=== PATIENT | female | born 2000 | race Caucasian/White ===

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

== ENCOUNTER 2019-01-24 11:47 | Emergency (ER) | payer BC, SELFPAY ==
[2019-01-24 11:54] VITALS: BP 121/64; PULSE 72; RESP 18; TEMP 36.7; O2SAT 99
--- NOTE | 2019-01-24 12:35 | W.ED.GENAD ---
Discharge Plan Disposition Patient Disposition: HOME Condition: Stable Discharge Details Chief Complaint: PsychEval Clinical Impression: Medication reaction, Depression, Anxiety, Passive suicidal ideations Primary Care Provider: Janell Rosales ED Provider: Kory Sahu Home Meds and New Rx's Prescriptions: Continued Nexplanon 68 mg implant 1 implant SBD ONCE Qty: 1 RF: 0 norethindrone (contraceptive) 0.35 mg tablet 0.35 mg PO DAILY Qty: 28 RF: 0 albuterol sulfate [Ventolin HFA] 60 PUFF HFA aerosol inhaler 200 puff Inhalation PRN PRNRF: 0 multivitamin 1 EACH capsule 1 ea PO DAILY RF: 0 Discharge Instructions Instructions: Depression (ED), Anxiety (ED) Additional Instructions: Please call [facility] human services or on-call psychiatric financial analyst as needed for any new or worsening signs or symptoms. Feel free to return to the emergency department for any further concerns otherwise follow-up with your primary care provider for reassessment preferably next week or as available for reassessment and recheck of your medication changes. Referrals: Janell Rosales [Primary Care Provider] - (As needed for reassessment) Discharge Data Discharge Date/Time-TO BE ENTERED AT DEPARTURE: 01/24/19 16:17 Medical Decision Making Patient presenting to the emergency department for chief complaint of worsening depression, nonspecific suicidal ideations, and some delusions. Patient states that one month ago she was started on Paxil by a new provider and then abruptly stopped by her normal provider due to worsening of symptoms. Over the past couple days she has noted worsening symptoms, delusions of feeling like she was in a coma but awake, and some nonspecific suicidal ideations without a specific plan. Patient denies any intentional activities to harm herself as she states that there is a voice in the back of her head causing her not to carry through with anything but has noticed an increase of these thoughts. Patient denies any medical complaints at this time. Physical exam is unremarkable for any specific physical findings that would suggest change in her psyche which I feel is more secondary to her medication change. Plan to check labs to rule out any endocrine or other source otherwise plan for mental health to evaluate patient as she does not appear intoxicated or altered in any manner fashion. Review of labs is unremarkable and patient is medically clear for further discussion of condition with mental health screener. After mental health financial analyst was able to see and evaluate patient she stated that patient would be safe to return home and follow-up with primary care or counseling services as needed. Patient is not at risk of imminent self-harm which also through my discussion and evaluation patient I do not disagree with this. Discussed discharge plan with patient who is in agreement with this plan. Patient was encouraged to return for new or worsening symptoms otherwise to follow-up with primary care provider for reassessment of her medication changes. After discussion of diagnosis and plan of care patient has no further needs, questions, or concerns and states clear understanding to return to the emergency department for any worsening symptoms. HPI General Mode of arrival: ambulatory. Date/Time Provider Initiated Documentation: 01/24/19 11:49. Limitations to Documentation: no limitations. Information obtained by: patient and RN notes reviewed. History of Present Illness 18 year old F presents to the emergency department with the chief complaint of Worsening site condition, depression, suicidal ideation, described as similar to prior episodes, Quality is described as other (Denies pain ), Patient started experiencing this month(s) (1) and it has been constant. Related Data Home Medications Medication Instructions Recorded Confirmed albuterol sulfate [Ventolin HFA] 200 puff INHALATION PRN PRN 02/12/13 01/24/19 multivitamin 1 ea PO DAILY 02/12/13 01/24/19 etonogestrel 68 mg subdermal 1 implant SBD ONCE #1 each 01/06/19 01/24/19 implant norethindrone (contraceptive) 0.35 0.35 mg PO DAILY #28 tab 01/06/19 01/24/19 mg tablet Previous Rx's Medication Instructions Recorded etonogestrel 68 mg subdermal 1 implant SBD ONCE #1 each 01/06/19 implant norethindrone (contraceptive) 0.35 0.35 mg PO DAILY #28 tab 01/06/19 mg tablet Allergies Allergy/AdvReac Type Severity Reaction Status Date / Time gluten AdvReac Unverified 01/24/19 11:53 General Stated Complaint: PsychEval TINO: 2 Review of Systems Constitutional Reports daytime sleepiness, Reports difficulty sleeping, Denies increased appetite and Reports poor appetite Comments: has been physically in good health, denies recent illness Cardiovascular Denies chest pain, Reports rapid heart rate (with panic attacks), Reports lightheadedness (with panic attacks) and Denies palpitations Musculoskeletal Reports back pain (x a couple months, no recent change) Neurologic Denies confusion and Reports memory loss (states this is usual with worsening depression) Psychiatric Reports abnormal sleep pattern, Reports anxiety, Reports change in appetite, Denies confusion, Reports depression, Reports memory loss (states this is usual with worsening depression), Reports panic attacks, Denies visual hallucinations, Denies hallucinations, Denies tactile hallucinations, Denies homicidal ideation and Reports suicidal ideation (no plan, feels impulsivity to hurt herself) Comments: history of self-harm (cutting), denies recent Also reports delusions. Reports 2-3 days of feeling like she was in a coma and she was trying to wake herself up; now she feels like she is asleep but is no longer trying to wake herself up Endocrine Denies palpitations [facility] Medical History Asthma (Chronic) Migraine (Chronic) Schizoaffective disorder (Acute) Family History Mother Hyperlipidemia Father No problems noted. Social History Smoking/Tobacco Use Status: Never Alcohol Intake: never Drug use: Occasionally Substance use type: other Details: CBD oil Do you feel safe at home: No (worried about self harm) Do you feel safe in your relationship?: Yes Female Reproductive History Menstrual control method: implanted History History 0 Para Hx # Term Pregnancies Multiple births Hx # Pregnancies Ectopic pregnancies AB induced Hx Number of Living Children AB spontaneous Exam Const General: cooperative, healthy appearing, comfortable, well developed and well groomed Nutritional Appearance: average body habitus Orientation: alert and oriented x3 Resp Effort & Inspection: normal respiratory effort and able to speak in complete sentences Auscultation: clear to auscultation bilaterally Cardio Rate: regular rate Rhythm: regular rhythm Heart Sounds: S1 normal, S2 normal, no click, no gallops, no murmurs and no rubs Neuro General: alert, oriented x3, gait normal and tone normal Speech: speech normal Gait: normal gait Motor: muscle tone normal throughout Psych Appearance: grossly normal Mental Status: mental status grossly normal Speech and Movement: speech and movement normal Mood: anxious mood (with occasional tearfulness during assessment) Attitude: cooperative Thought Process: normal Thought Content: normal, no compulsions, delusions, no homicidality, no obsessions and suicidality (Without plan) Insight: insight good Course Vital Signs Temperature 36.7 C 01/24/19 11:54 Pulse 72 01/24/19 11:54 Respiratory Rate 18 01/24/19 11:54 Blood Pressure 121/64 01/24/19 11:54 Pulse Oximetry 99 01/24/19 11:54 Temperature 36.7 C 01/24/19 11:54 Temperature Source Temporal Artery Scan 01/24/19 11:54 Pulse 72 01/24/19 11:54 Respiratory Rate 18 01/24/19 11:54 Respiratory Effort Non-Labored 01/24/19 12:06 Blood Pressure 121/64 01/24/19 11:54 Blood Pressure Position Sitting 01/24/19 11:54 Pulse Oximetry 99 01/24/19 11:54 Oxygen Delivery Method Room Air 01/24/19 11:54 Oxygen Flow Rate 0 01/24/19 11:54 Pain Level 0 01/24/19 11:54
[2019-01-24 12:45] LABS: Abs Immature Grans 0.01 k/cumm (0.0-0.09); Absolute Basophil Count 0.04 k/cumm (0.0-0.2); Absolute Eosinophil Count 0.13 k/cumm (0.0-0.7); Absolute Lymphocyte Count 2.08 k/cumm (1.2-3.4); Absolute Monocyte Count 0.48 k/cumm (0.11-0.7); Absolute Neutrophil Count 4.77 k/cumm (1.2-6.7); Basophils % 0.5; Eosinophils % 1.7; HCT 39.9 % (36.0-46.0); HGB 13.4 g/dL (12.0-15.5); Immature Grans % 0.1; Lymphocytes % 27.7; Mean Corp. HGB Concentration 33.6 g/dL (32.0-36.0); Mean Corpuscular Hemoglobin 27.8 pg (27.0-33.0); Mean Corpuscular Volume 82.8 fL (80-95); Mean Platelet Volume 10.4 fL (8.0-11.0); Monocytes % 6.4; Neutrophils % 63.6; Platelet Count 290 x1000/uL (130-400); RBC 4.82 m/cumm (4.00-5.20); RBC Distribution Width 13.9 % (11.7-14.6); White Blood Cell Count 7.51 k/cumm (4.4-10.8)
[2019-01-24 13:00] LABS: Salicylate < 2.8 mg/dL (2.8-20.0)
[2019-01-24 13:02] LABS: Acetaminophen < 2 ug/mL (10-30)
[2019-01-24 13:04] LABS: ALT 19 U/L (12-78); AST 11 U/L (15-37); Alkaline Phosphatase 77 U/L (46-116); Anion Gap 9.4 mmol/L (3-11); BUN 16 mg/dL (7-18); Bilirubin, Total 0.4 mg/dL (0.2-1.0); CO2 25.6 mmol/L (21.0-32.0); Calcium 9.4 mg/dL (8.5-10.1); Chloride 106 mmol/L (98-107); Glucose 88 mg/dL (70-100); Sodium 141 mmol/L (136-145); TSH 2.62 uIU/mL (0.516-4.13); Total Protein 7.8 g/dL (6.4-8.2)
[2019-01-24 13:05] LABS: Bilirubin Negative (Negative); Blood Large (Negative); Clarity Clear (Clear); Glucose Negative (Negative); Ketones Negative (Negative); Leukocyte Esterase Negative (Negative); Nitrite Negative (Negative); Specific Gravity 1.025 (1.005-1.025); Urobilinogen 0.2 EU/dL (Up TO 0.2); pH 6.5 (5-8)
[2019-01-24 13:08] LABS: ETHANOL BLOOD < 3.0 mg/dL (<3)
[2019-01-24 13:12] LABS: WBC 0-2 HPF (0-5)
[2019-01-24 13:13] LABS: Bacteria Rare HPF (Negative); C & S Indicated? No; Casts Negative LPF (Negative); Crystals Negative HPF (Negative); Epithelial Cells Few HPF (Negative); Mucus Trace (Negative); Other Cells Negative (Negative); RBC 20-50 (0-2)
--- NOTE | 2019-01-24 13:13 | NUR.NOTE ---
Nursing Note: CPSO arrives---pt eating lunch---CYDNEY event management consultantphysically impaired teacher paged.
[2019-01-24 13:18] LABS: *AMPHETAMINES SCREEN URINE Negative (Negative); *BARBITURATES SCREEN URINE Negative (Negative); *BENZODIAZEPINES SCREEN URINE Negative (Negative); Cannabinoids THC Negative (Negative); Cocaine Screen,Urine Negative (Negative); METHADONE URINE SCREEN Negative (Negative); OPIATES URINE SCREEN Negative (Negative)
[2019-01-24 13:19] LABS: Tricyclic Antidepressants Negative (Negative)
--- NOTE | 2019-01-24 14:47 | NUR.NOTE ---
Nursing Note: [facility] Screener arrives---in room with pt
== END 2019-01-24 16:17 | disposition home or self-care (01) ==
PROVIDERS: Emergency Provider Nurse Practitioner Family; PCP Registered Nurse
DX: F22 Delusional disorders (principal); F41.8 Other specified anxiety disorders; R45.851 Suicidal ideations
CPT/HCPCS: 36415; 80053; 80307; 81025; 99285; 80320; 80329; 81003; 81015; 84443; 85025; 99284

== ENCOUNTER 2022-03-07 13:30 | Emergency (ER) | payer BC, SELFPAY ==
[2022-03-07 13:37] VITALS: BP 135/72; PULSE 86; RESP 16; TEMP 36.9; O2SAT 99
[2022-03-07 16:12] LABS: Bilirubin Negative (Negative); Blood Trace-intact (Negative); Clarity Clear (Clear); Glucose Negative (Negative); Ketones Negative (Negative); Leukocyte Esterase Trace (Negative); Nitrite Negative (Negative); Specific Gravity 1.025 (1.005-1.025); Urobilinogen 0.2 EU/dL (Up TO 0.2); pH 6.5 (5-8)
[2022-03-07 16:20] LABS: Epithelial Cells Rare HPF (Negative); RBC Negative HPF (0-2); WBC 0-2 HPF (0-5)
[2022-03-07 16:21] LABS: Bacteria Negative HPF (Negative); C & S Indicated? Yes; Casts Negative LPF (Negative); Crystals Negative HPF (Negative); Mucus Negative (Negative); Other Cells Negative (Negative)
[2022-03-07 16:40] LABS: *AMPHETAMINES SCREEN URINE Negative (Negative); *BARBITURATES SCREEN URINE Negative (Negative); *BENZODIAZEPINES SCREEN URINE Negative (Negative); Cannabinoids THC Negative (Negative); Cocaine Screen,Urine Negative (Negative); METHADONE URINE SCREEN Negative (Negative); OPIATES URINE SCREEN Negative (Negative)
[2022-03-07 16:42] LABS: Tricyclic Antidepressants Negative (Negative)
--- NOTE | 2022-03-07 17:11 | PDOC.CMSAFED ---
- If Service Date Differs Date of service: 03/07/22 Time of Service: 17:11 Care Management Safety Plan Status: Interim - Reason for Wait Reason for Wait: Assessment/Screening Chief Complaint: Debby is a 21 year old female who presents in the ED for depression and suicidal ideation. She reportedly has a therapist in [place] where she attended school. CM will continue to follow. CM will respond to ED to assess patient after patient has been medically cleared and assessed by screener. If screener deems patient meets criteria for psychiatric stabilization CM will facilitate interdepartmental huddle with [facility] screener for safety planning considerations and meet with patient to review [facility] policy and safety plan, establish individual wishes for treatment and maintain patient rights. In the interim; please note safety plan below to guide patient care while awaiting further assessment in the ED. SAFETY PLAN: 1. Will remain on suicide precautions and in paper clothes. 2. Will remain in room under direct supervision of one-on-one staff at all times provided by BESSIE, CUSTOMER OPERATIONS REPRESENTATIVE harvester operator. 3. May have paper cups, plates, finger foods as well as a cardboard spoon with which to eat meals. 4. Follow [facility] Management of the Admitted Behavioral Health Patient policy. 5. Personal care: Comfort bath system only at this time. 6. Bathroom privileges: with escort in ED. Available in room without limitation on Med/Surg. 6. No personal belongings at this time; per RN discretion. 7. No visitors at this time. 8. Phone contact limited to legal contact at this time. 9. Activities: Music tablet per RN discretion. Med/Surg: Television and remote available at RN discretion. 10. Due to VOLUNTARY status, if patient wishes to leave [facility], staff will contact [facility] Crisis Screener ([phone]) and On-Call Conservation Enforcement Officer ([phone]) as soon as possible. In the event of elopement, notify [facility] Police ([phone]). If deemed appropriate for inpatient psychiatric care, safety plan will be established with patient, and care team, to adhere to patient goals, identify restrictions based on behavioral status, address nutrition, and determine allowed personal belongings, tools for hygiene and personal care. As well plan will determine level of activity including ambulation, level of supervision, visitors, and determine privileges based on level of acuity, behaviors and level of engagement by patient.
--- NOTE | 2022-03-07 18:20 | W.ED.GENAD ---
Discharge Plan Disposition Patient Disposition: HOME Condition: Stable Discharge Details Clinical Impression: Depression Primary Care Provider: Janell Rosales ED Provider: Sebastien Araya Home Meds and New Rx's Prescriptions: Continued albuterol sulfate [Ventolin HFA] 60 PUFF HFA aerosol inhaler 200 puff Inhalation PRN PRN Mirena 20 mcg/24 hours (7 yrs) 52 mg Intrauterine Device 1 device INTRAUTERINE DIRECTED aripiprazole 10 mg tablet 10 mg PO DAILY Label Comments: TAKE 1 TABLET BY MOUTH EVERY DAY lamotrigine 100 mg tablet 50 - 100 mg PO DIRECTED Label Comments: TAKE 1 AND 1/2 TABLETS BY MOUTH EVERY DAY Rx Instructions: 50mg QAM 100mg QHS hydroxyzine pamoate 25 mg capsule 25 mg PO BID PRN Label Comments: TAKE 1 CAPSULE BY MOUTH TWICE DAILY NEEDED FOR ANXIETY Discharge Instructions Instructions: Depression (ED) Additional Instructions: Please follow-up with [facility] as discussed with the crisis screener. Please contact your primary care physician to arrange follow-up. Return to the ER immediately for any worsening or new concerning symptoms. [facility] Janell Rosales [Primary Care Provider] - Discharge Data Discharge Date/Time-TO BE ENTERED AT DEPARTURE: 03/07/22 18:41 Medical Decision Making 21-year-old female with depression, here with increased depression recently with intermittent fleeting thoughts of suicidality. Patient is not currently suicidal. Patient is here voluntarily seeking treatment today. Smart medical clearance was performed. [facility] crisis screener was consulted and evaluated the patient and recommends discharge with outpatient safety plan and follow-up. Discharge plan discussed with the patient who is in agreement. Lab Data Lab results reviewed: Yes I reviewed the patient's lab results. Labs: 03/07/22 15:39 Urine - Reflex from Ua Urine Culture - Final Gram Positive Kendal,Mixed Laboratory Tests Range/Units 03/07/22 03/07/22 15:39 15:39 Urine Color (Yellow) Yellow Urine Clarity (Clear) Clear Urine pH (5-8) 6.5 Ur Specific [place] (1.005-1.025) 1.025 Urine Protein (Negative) mg/dL Negative Urine Ketones (Negative) mg/dL Negative Urine Blood (Negative) Trace-intact H Urine Nitrite (Negative) Negative Urine Bilirubin (Negative) Negative Urine Urobilinogen (Up TO 0.2) EU/dL 0.2 Ur Leukocyte Esterase (Negative) Trace H Urine RBC (0-2) HPF Negative Urine WBC (0-5) HPF 0-2 Ur Epithelial Cells (Negative) HPF Rare Urine Crystals (Negative) HPF Negative Urine Bacteria (Negative) HPF Negative Urine Casts (Negative) LPF Negative Urine Mucus (Negative) Negative Urine Other (Negative) Negative Ur Culture Indicated? Yes Urine Glucose (Negative) mg/dL Negative Urine Opiates Screen (Negative) Negative Urine Methadone Screen (Negative) Negative Ur Barbiturates Screen (Negative) Negative Ur Tricyclics Screen (Negative) Negative Ur Amphetamines Screen (Negative) Negative U Benzodiazepines Scrn (Negative) Negative Urine Cocaine Screen (Negative) Negative Ur THC Screen (Negative) Negative HPI General Mode of arrival: ambulatory. Date/Time Provider Initiated Documentation: 03/07/22 14:16. Limitations to Documentation: no limitations. Information obtained by: patient. HPI Narrative: 21-year-old female with history of depression, presents with chief complaint of depression. Patient notes increased depression and intermittently feeling suicidal over the past few weeks. Symptoms are currently moderate. No modifiers. She notes she is not currently suicidal. No associated homicidality. Patient feels safe at home. Related Data Home Medications Medication Instructions Recorded Confirmed albuterol sulfate 90 mcg/actuation 200 puff inhalation PRN PRN 02/12/13 03/07/22 aerosol inhaler (Ventolin HFA) aripiprazole 10 mg tablet 10 mg PO DAILY 03/07/22 03/07/22 hydroxyzine pamoate 25 mg capsule 25 mg PO BID PRN 03/07/22 03/07/22 lamotrigine 100 mg tablet 50 - 100 mg PO DIRECTED 03/07/22 03/07/22 levonorgestrel 20 mcg/24 hours (7 1 device intrauterine DIRECTED 03/07/22 03/07/22 yrs) 52 mg intrauterine device (Mirena) Allergies Allergy/AdvReac Type Severity Reaction Status Date / Time gluten AdvReac Unverified 03/07/22 13:43 General Stated Complaint: PsychEval TINO: 2 Review of Systems All systems reviewed & are unremarkable except as noted in HPI and below Constitutional Constitutional: Denies fever(s) Cardiovascular Cardiovascular: Denies chest pain PFSH All Active Problems Depression (Chronic) Schizoaffective disorder (Acute) Asthma (Chronic) Medical History Migraine Family History Mother Hyperlipidemia Father No problems noted. Social History Smoking/Tobacco Use Status: Never Smoking risk assessment performed?: Yes Alcohol Intake: never Drug use: Occasionally Substance use type: other Details: CBD oil Do you feel safe at home: No (worried about self harm) Do you feel safe in your relationship?: Yes Female Reproductive History Menstrual control method: implanted History History 0 Para Hx # Term Pregnancies Multiple births Hx # Pregnancies Ectopic pregnancies AB induced Hx Number of Living Children AB spontaneous Exam Const General: cooperative and no acute distress HENMT Head: normocephalic and atraumatic Eyes Conjunctivae: normal conjunctivae Sclera: normal sclerae Resp Auscultation: clear to auscultation bilaterally, no rales, no rhonchi and no wheezes Cardio Rate: regular rate and not tachycardic Rhythm: regular rhythm GI Palpation: soft, not firm, no guarding, no masses, not rigid and nontender Neuro General: patient alert, patient awake and tone normal Psych Appearance: grossly normal Mental Status: mental status grossly normal and other (Depressed) Speech and Movement: speech and movement normal Mood: other (Depressed) Affect: other (Tearful) Attitude: cooperative Thought Process: normal Insight: insight good Judgment: judgment good Course Vital Signs Vital signs: Vital Signs Temperature 36.9 C 03/07/22 13:37 Pulse 86 03/07/22 13:37 Respiratory Rate 16 03/07/22 13:37 Blood Pressure 135/72 03/07/22 13:37 Pulse Oximetry 99 03/07/22 13:37 Temperature 36.9 C 03/07/22 13:37 Temperature Source Skin 03/07/22 13:37 Pulse 86 03/07/22 13:37 Respiratory Rate 16 03/07/22 13:37 Respiratory Effort Non-Labored 03/07/22 15:52 Blood Pressure 135/72 03/07/22 13:37 Blood Pressure Position Sitting 03/07/22 13:37 Pulse Oximetry 99 03/07/22 13:37 Oxygen Delivery Method Room Air 03/07/22 13:37 Oxygen Flow Rate 0 03/07/22 13:37 Pain Level 0 03/07/22 13:37 Lab/Test Results Lab/Test Results: 03/07/22 15:39 Urine - Reflex from Ua Urine Culture - Pending Laboratory Tests Range/Units 03/07/22 03/07/22 15:39 15:39 Urine Color (Yellow) Yellow Urine Clarity (Clear) Clear Urine pH (5-8) 6.5 Ur Specific [place] (1.005-1.025) 1.025 Urine Protein (Negative) mg/dL Negative Urine Ketones (Negative) mg/dL Negative Urine Blood (Negative) Trace-intact H Urine Nitrite (Negative) Negative Urine Bilirubin (Negative) Negative Urine Urobilinogen (Up TO 0.2) EU/dL 0.2 Ur Leukocyte Esterase (Negative) Trace H Urine RBC (0-2) HPF Negative Urine WBC (0-5) HPF 0-2 Ur Epithelial Cells (Negative) HPF Rare Urine Crystals (Negative) HPF Negative Urine Bacteria (Negative) HPF Negative Urine Casts (Negative) LPF Negative Urine Mucus (Negative) Negative Urine Other (Negative) Negative Ur Culture Indicated? Yes Urine Glucose (Negative) mg/dL Negative Urine Opiates Screen (Negative) Negative Urine Methadone Screen (Negative) Negative Ur Barbiturates Screen (Negative) Negative Ur Tricyclics Screen (Negative) Negative Ur Amphetamines Screen (Negative) Negative U Benzodiazepines Scrn (Negative) Negative Urine Cocaine Screen (Negative) Negative Ur THC Screen (Negative) Negative POC- Test(urine) Negative
[2022-03-07 18:40] VITALS: BP 137/68; PULSE 85; RESP 16; TEMP 36.9; O2SAT 99
--- NOTE | 2022-03-07 18:44 | PDOC.MHCN_ITS ---
Date of service: 03/07/22 Time of Service: 17:20 PHQ-9 Over the last 2 weeks, how often have you been bothered by any of the following problems? 1. Little interest or pleasure in doing things: more than half the days 2. Feeling down, depressed, or hopeless: nearly every day 3. Trouble falling or staying asleep, or sleeping too much: several days 4. Feeling tired or having little energy: more than half the days 5. Poor appetite or overeating: several days 6. Feeling bad about yourself - or that you are a failure or have let yourself and your family down: more than half the days 7. Trouble concentrating on things, such as reading the newspaper or watching television: several days 8. Moving or speaking so slowly that other people could have noticed? - Or the opposite - being so fidgety or restless that you have been moving around a lot more than usual: not at all 9. Thoughts that you would be better off or of hurting yourself in some way: more than half the days Total score: 14 If you checked off any problems, how difficult have these problems made it for you to do your work, take care of things at home, or get along with other people?: very difficult PHQ-9 Results: Positive Source: Developed by Drs. Luther Miller, Britt Monet, Caleb Woodard and colleagues, with an educational leny from [employer], [place]. Suicide Severity Rate CSSRS Have you wished you were or wished you could go to sleep and not wake up?: Yes Have you actually had any thoughts of killing yourself?: Yes CSSRS2 Have you been thinking about how you might do this?: Yes Have you had these thoughts and had some intention of acting on them?: No Have you started to work out or worked out the details of how to kill yourself? Do you intend to carry out this plan?: No CSSRS3 Have you ever done anything, started to do anything or prepared to do anything to end your life?: Yes CSSRS4 Was this within the past three months?: No Screening Score Total Score: 6 Screening: Positive Mental Health Emergency Note Release [facility] release signed:: Yes Reason for Visit Depression/Fleeting SI In the last 2 weeks has the pt presented for ES prior to today?: No Client Information Client is: New Well Housed: No,status: Not homeless, Non Suicidal Self Injury Current: No History: yes, Client reporting engaging in NSSI behaviors by hitting head with heads. Client reports she last engaged in cutting at 15 years old. Safety Risk/Harm to Self or Others Current Ideation to Harm Self or Others: Yes to self. (Client reports she does not have intent to act on her suicidal thoughts. Client reports having thoughts such as, oh I could have just drove into that train, but does not have intent to act on these thoughts.) Intent: no, has no intent. Plan: no.does not have a plan. History of suicide attempt: No history of suicide attempt reported Risk: Does risk to harm exist?: yes. Access to means: Yes. Types of Means: Other weapons and Medication. Details: Kitchen knives, prescription medication, over the counter medication. . Counseling provided: Yes Risk: Low Risk Duty to warn indicated: No Asssessment/Mental Status Appearance: Well groomed Attitude: Cooperative and Friendly Behavior: Unremarkable Speech: Normal Affect: Cogruent with mood Mood: Sad, Depressed and Anxious Thought process: Unremarkable Hallucinations: No and No evidence Delusions: No and No evidence Attention: Unremarkable Perception: Not impaired Orientation: Fully orientated Memory: Intact Insight: Good Judgement: Excellent Neurovegetative Symptoms Sleep: Decrease Appetitie: Disordered Interests: Decrease Energy: Decrease Libido: Not applicable Substance Use: Do you use nicotine?: No Have you used substances in the last 7 days?: No Additional Issues: Assaultive/Threatening Behavior: No Medical Concerns: No Client engaged in active self harm w/weapon: No Threatening to run away: No Child reported abuse/neglect: No Voluntarily presenting for services: Yes Domestic violence is a concern: No Extreme Psychosis or extreme behavior is present: No Impression Client reports having fleeting suicidal ideation over the past few weeks that she has been in a depressive state of her bipolar diagnosis. Client reports she came to the ED as suggested by her therapist, since her thoughts are more intrusive than usual. Client reports feeling scared by her thoughts, but has no intentions of acting on them and does not want to end her life by suicide. Resources Reosurces reviewed and given:: Crisis Bed and [facility] Plan/Disposition Recommended Disposition: PCP/Office visit, Crisis bed, No, [facility] Services [facility] Services: Other (Care bed, possible temporary case management.) and Med management. Plan: Client and clinician created a [id number] plan. Plan can be seen in clients chart. Client will be completing check in calls from home, as she awaits crisis bed placement. Person reported agreement to plan: Yes Reports/communication Outcome discussed with: ED/Personnel
== END 2022-03-07 18:41 | disposition home or self-care (01) ==
PROVIDERS: Emergency Provider Student in an Organized Health Care Education/Training Program; PCP Registered Nurse
DX: F32.A Depression, unspecified (principal); R82.79 Other abnormal findings on microbiological examination of urine
CPT/HCPCS: 80307; 81025; 99285; 81003; 81015; 87086; 99284

== ENCOUNTER 2023-01-26 14:05 | Outpatient (REF) | payer BC, SELFPAY ==
[2023-01-26 17:28] LABS: C Diff PCR Negative (Negative)
[2023-01-27 21:01] LABS: Campylobacter PCR Negative (Negative); Salmonella PCR Negative (Negative); Shiga Toxin PCR Negative (Negative); Shigella/Enteroinvasive Ecoli Negative (Negative)
[2023-01-29 16:13] LABS: Cryptosporidium, F Negative (Negative)
== END 2023-01-26 14:06 | disposition home or self-care (01) ==
LOC: LBN 14:05
PROVIDERS: PCP Registered Nurse; Visit Provider Registered Nurse
DX: R19.7 Diarrhea, unspecified (principal)
CPT/HCPCS: 87328; 87329; 87493; 87505; 87177